=== PATIENT | male | born 1970 | race Caucasian/White ===

== ENCOUNTER 2021-08-05 01:40 | Emergency (ER) | payer OTHER ==
[~2021-08-05] VITALS: Ht 170.2 cm; Wt 77.1 kg
[2021-08-05 01:40] VITALS: BP 152/87
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
[2021-08-05] MEDS ORDERED: IBUPROFEN 800 MG TAB PO ONE (01:50)
--- NOTE | 2021-08-05 01:50 | NUR ---
PT. TAKEN TO CT VIA W/C
--- NOTE | 2021-08-05 02:05 | NUR ---
PT. BACK FROM CT
[2021-08-05] MEDS ORDERED: IBUP-2213 PO (02:30)
[2021-08-05 02:45] VITALS: BP 152/87
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
== END 2021-08-05 02:46 ==
LOC: MED 01:40
DX: S89.92XA Unspecified injury of left lower leg, initial encounter (principal); S89.91XA Unspecified injury of right lower leg, initial encounter; Z02.89 Encounter for other administrative examinations; V49.9XXA Car occupant (driver) (passenger) injured in unspecified traffic accident, initial encounter; Y93.89 Activity, other specified; Y92.89 Other specified places as the place of occurrence of the external cause; Y99.8 Other external cause status
CPT/HCPCS: 73590; 99284